=== PATIENT | female | born 1945 | race Two or more races ===

== ENCOUNTER 2018-07-24 13:10 | Emergency (ER) | payer OTHER ==
[~2018-07-24] VITALS: Ht 147.3 cm; Wt 54.4 kg
[2018-07-24] MEDS ORDERED: COUMADIN7.5 MG (13:27)
[2018-07-24] MEDS ORDERED: SYNTHROID50 MCG (13:28)
[2018-07-24] MEDS ORDERED: ALTOPREV40 MG (13:28)
== END 2018-07-25 13:11 | disposition home or self-care (01) ==
LOC: ER 13:10
DX: I48.91 Unspecified atrial fibrillation (principal)

== ENCOUNTER 2022-11-09 14:09 | Inpatient (IN) | payer OTHER ==
[~2022-11-09] VITALS: Ht 144.8 cm; Wt 53.5 kg
[~2022-11-09 14:09] MED LIST: ALTOPREV40 MG; COUMADIN7.5 MG; SYNTHROID50 MCG
--- NOTE | 2022-11-09 17:11 | NUR ---
PACIENTE ALERTA Y ORIENTDA X 3 REFIERE DIARREAS X 9 HOY.
--- NOTE | 2022-11-09 18:06 | NUR ---
PACIENTE EVALUADA POR NARANJO QUIEN ORDENA TRATAMIENTO MEDICO, SE LE ORIENTA A PACIENTE SOBRE EL MISMO Y VERBALIZA ENTENDER, SE LE COLECTAN MUESTRAS Y SE CANALIZA BAJO MEDIDAS ASEPTICAS, SE ADMNISTRAN MED WALESKA ORDEN.
--- NOTE | 2022-11-09 23:14 | NUR ---
SE RECIBE PTE ALERTA Y ORIENTADA X3 EN MONIE BAJA CON BARANDAS ELEVADAS POR SEGURIDAD. SE OBSERVA CON BUEN PATRON RESPIRATORIO. RECIBIENDO IV FLUIDS. PEND CONS, DR Nina W[place]
== END 2022-11-12 12:07 | disposition left against medical advice (07) | DRG 392 ==
LOC: ER 14:09 → MEDI 23:34 → MEDJ 11-11 09:53
PROVIDERS: ADMIT Specialist; ATTEND Specialist
PROC: BW21ZZZ Computerized Tomography (CT Scan) of Abdomen and Pelvis (ICD-10-PCS; principal; 2022-11-09)
DX: K52.9 Noninfective gastroenteritis and colitis, unspecified (principal); K51.00 Ulcerative (chronic) pancolitis without complications